=== PATIENT | female | born 1975 | race Caucasian/White ===

== ENCOUNTER 2020-01-26 14:41 | Emergency (ER) | payer OTHER ==
--- NOTE | 2020-01-26 15:18 | RAD ---
Exam:3 views right ankle HISTORY: Pain. Trauma. COMPARISON: None FINDINGS: Nonspecific screw along the talus. No perihardware lucency. Joint spaces are preserved. Ank le mortise appears be intact. No fracture. IMPRESSION: No fracture.
--- NOTE | 2020-01-26 15:18 | RAD ---
Exam:3 views of right foot HISTORY: Pain. Injury. COMPARISON: None FINDINGS: Nonspecific screw is noted in the talus without perihardware lucency. Lisfranc alignment is maintained. No evidence of fracture. No significant soft tissue swelling. IMPRESSION: No posttraumatic change.
== END 2020-01-26 15:28 | disposition home or self-care (01) ==
LOC: NAV ERS 14:41
DX: S90.31XA Contusion of right foot, initial encounter (principal); M06.9 Rheumatoid arthritis, unspecified; G43.909 Migraine, unspecified, not intractable, without status migrainosus; Z79.899 Other long term (current) drug therapy; Z79.891 Long term (current) use of opiate analgesic

== ENCOUNTER 2021-01-27 21:48 | Emergency (ER) | payer OTHER ==
[2021-01-27] MEDS ORDERED: Tetracaine HCl 0.5% Ophth Soln 2 ML Bottle ONE (22:12)
[2021-01-27] MEDS ORDERED: Fluorescein Opthalmic Strip ONE (22:12)
[2021-01-27] MEDS ORDERED: Gentamicin Ophth Soln 0.3% 5 ml Bottle ONE (22:28)
== END 2021-01-27 22:38 | disposition home or self-care (01) ==
LOC: NAV ERS 21:48
DX: S05.01XA Injury of conjunctiva and corneal abrasion without foreign body, right eye, initial encounter (principal); H01.00A Unspecified blepharitis right eye, upper and lower eyelids; X58.XXXA Exposure to other specified factors, initial encounter
CPT/HCPCS: 99283